=== PATIENT | female | born 1965 | race Caucasian/White ===

== ENCOUNTER 2017-03-11 09:02 | Outpatient (CLI) | payer MEDICAID ==
[2017-03-11 18:55] LABS: THYROID STIMULATING HORMONE 0.88 uIU/mL (0.34-5.60)
[2017-03-11 19:05] LABS: FOLLICLE STIMULATING HORMONE 17.99 mIU/mL
== END 2017-03-11 09:03 | disposition home or self-care (01) ==
LOC: LAB.F 09:02
PROVIDERS: ATTEND Nurse Practitioner Family
DX: N92.4 Excessive bleeding in the premenopausal period (principal); R53.83 Other fatigue
CPT/HCPCS: 36415; 83001; 84443

== ENCOUNTER 2017-03-13 13:20 | Outpatient (CLI) | payer MEDICAID ==
--- NOTE | 2017-03-14 16:44 | Mammography Report ---
DIGITAL SCREENING MAMMOGRAM: 03/13/2017 CLINICAL INDICATION: A 51-year-old, for screening. COMPARISON: 02/2016, 10/2013, 12/2010, 11/2009, 03/2008. TECHNIQUE: Routine CC and MLO projections were obtained of the breasts. Bilateral laterally exaggera micky craniocaudal views. FINDINGS: Parenchymal tissue within both breasts is heterogeneously dense, which may lower the sensi tivity of mammography; however, there are no dominant masses, suspicious microcalcifications, or seco ndary signs of malignancy. In comparison to the previous studies, there are no significant changes. ASSESSMENT: NO MAMMOGRAPHIC EVIDENCE OF MALIGNANCY. NO SIGNIFICANT INTERVAL CHANGES. RECOMMENDATION: Screening mammography is recommended annually. BIRADS category 1 - negative. STANDARD QUALIFYING STATEMENTS 1. This examination was reviewed with the aid of Computed-Aided Detection (CAD). 2. A negative or benign imaging report should not delay biopsy if clinically suspicious findings are present. Consider surgical consultation if warranted. More than 5% of cancers are not identified by i maging. 3. Dense breasts may obscure an underlying neoplasm. JOB #: [id number] EXT JOB #:[id number]
== END 2017-03-13 13:21 | disposition home or self-care (01) ==
LOC: DI.S 13:20
PROVIDERS: ATTEND Nurse Practitioner Family
DX: Z12.31 Encounter for screening mammogram for malignant neoplasm of breast (principal)
CPT/HCPCS: 77067

== ENCOUNTER 2018-02-25 07:32 | Outpatient (CLI) | payer MEDICAID ==
--- NOTE | 2018-02-25 11:36 | XRAY Report ---
Procedure Date: 02/25/2018 Accession Number: [id number] / [id number] Procedure: XR - Shoulder 2 View LT CPT Code: FULL RESULT: EXAM: LEFT SHOULDER RADIOGRAPHY EXAM DATE: 02/25/2018 07:56 AM. CLINICAL HISTORY: SHOULDER JOINT PX, LEFT. COMPARISON: None. TECHNIQUE: 2 views. FINDINGS: Bones: Normal. No fracture or bone lesion. Joints: Minimal degenerative changes in the glenohumeral joint. Minimal degenerative changes in the acromioclavicular joint. Soft tissues: The visualized hemithorax is unremarkable. No soft tissue swelling. IMPRESSION: Minimal degenerative changes in the glenohumeral and acromioclavicular joints. RADIA
== END 2018-02-25 07:33 | disposition home or self-care (01) ==
LOC: DI 07:32
PROVIDERS: ATTEND Nurse Practitioner Family
DX: M19.012 Primary osteoarthritis, left shoulder (principal)

== ENCOUNTER 2018-03-16 07:23 | Outpatient (CLI) | payer MEDICAID ==
[2018-03-16 11:41] LABS: BASOPHILS % (AUTO) 0.7 %; EOSINOPHILS # (AUTO) 0.3 10^3/uL (0.0-0.7); HGB - HEMOGLOBIN 13.8 g/dL (12.0-16.0); LYMPHOCYTES # (AUTO) 1.6 10^3/uL (1.5-3.5); LYMPHOCYTES % (AUTO) 24.2 %; MEAN CORPUSCULAR HEMOGLOBIN 30.6 pg (27.0-31.0); MEAN CORPUSCULAR HGB CONC 32.7 g/dL (32.0-36.0); MEAN CORPUSCULAR VOLUME 93.6 fL (81.0-99.0); MEAN PLATELET VOLUME 8.4 fL (7.9-10.8); MONOCYTES # (AUTO) 0.7 10^3/uL (0.0-1.0); MONOCYTES % (AUTO) 10.7 %; NEUTROPHILS # (AUTO) 3.9 10^3/uL (1.5-6.6); NEUTROPHILS % (AUTO) 59.4 %; PLT - PLATELET COUNT 289 10^3/uL (130-450); RED BLOOD COUNT 4.51 10^6/uL (4.20-5.40); RED CELL DISTRIBUTION WIDTH 13.3 % (12.0-15.0); WHITE BLOOD COUNT 6.6 x10^3/uL (4.8-10.8)
[2018-03-16 11:57] LABS: ALBUMIN/GLOBULIN RATIO 1.3 (1.0-2.2); ALKALINE PHOSPHATASE 51 IU/L (42-121); ALT ALANINE AMINOTRANSFERASE 16 IU/L (10-60); AST ASPARTATE AMINOTRANSFERASE 26 IU/L (10-42); BILIRUBIN,TOTAL 0.6 mg/dL (0.2-1.0); BUN - BLOOD UREA NITROGEN 21 mg/dL (6-20); CALCIUM 9.4 mg/dL (8.5-10.3); CARBON DIOXIDE - CO2 25 mmol/L (21-32); CHLORIDE 105 mmol/L (101-111); CHOL/HDL RATIO 3.3 (<4.4); CHOLESTEROL 192 mg/dL; CREATININE 0.7 mg/dL (0.4-1.0); GFR - MDRD 89 (>89); GLUCOSE 95 mg/dL (70-100); HDL CHOLESTEROL 59 mg/dL; LDL CHOLESTEROL,CALCULATED 119 mg/dL; SODIUM 137 mmol/L (135-145); TOTAL PROTEIN 7.2 g/dL (6.7-8.2); VLDL CHOLESTEROL 14 mg/dL
== END 2018-03-16 07:24 | disposition home or self-care (01) ==
LOC: LAB.F 07:23
PROVIDERS: ATTEND Nurse Practitioner Family
DX: Z13.1 Encounter for screening for diabetes mellitus (principal); Z13.220 Encounter for screening for lipoid disorders; N92.4 Excessive bleeding in the premenopausal period
CPT/HCPCS: 36415; 80050; 80061; 83721

== ENCOUNTER 2018-04-16 08:05 | Outpatient (CLI) | payer MEDICAID ==
--- NOTE | 2018-04-16 10:10 | Ultrasound Report ---
Procedure Date: 04/16/2018 Accession Number: [id number] / [id number] Procedure: US - Pelvic w/Transvaginal CPT Code: FULL RESULT: EXAM: Pelvic w/Transvaginal DATE: 04/16/2018 9:45 AM CLINICAL HISTORY: IRREGULAR MENSTRUATION,UNSPECIFIED COMPARISON: 03/13/2016. TECHNIQUE: Realtime transabdominal imaging performed to identify the uterus and adnexa and as an overview of other pelvic structures, followed by transvaginal imaging for better assessment of the endometrium and/or adnexa, with static image documentation. FINDINGS: Uterus: 9.5 x 5.1 x 5.3 cm, volume 134 cc. Anteverted position. Normal overall size and echotexture. Masses: None. Endometrium: 6 mm. Normal. Cervix: A few nabothian cysts are noted. Right Ovary/Adnexa: 3.9 x 2.1 x 1.6 cm, volume 7 cc. Normal echotexture. Blood flow is present. No adnexal mass is seen. Left Ovary/Adnexa: Visualization is limited to transabdominal images. 2.4 x 1.7 x 1.6 cm, volume 2.1 cc. Normal echotexture. Blood flow is present. No adnexal mass is seen. Free Fluid: None. Other: None. IMPRESSION: Normal pelvic ultrasound. RADIA
== END 2018-04-16 08:06 | disposition home or self-care (01) ==
LOC: DI 08:05
PROVIDERS: ATTEND Obstetrics & Gynecology
DX: N92.6 Irregular menstruation, unspecified (principal); N88.8 Other specified noninflammatory disorders of cervix uteri
CPT/HCPCS: 76830; 76856

== ENCOUNTER 2018-06-18 10:39 | Outpatient (CLI) | payer MEDICAID ==
[2018-06-18 19:04] LABS: FOLLICLE STIMULATING HORMONE 18.22 mIU/mL
[2018-06-18 19:05] LABS: LUTEINIZING HORMONE 10.63 mIU/mL
== END 2018-06-18 10:40 | disposition home or self-care (01) ==
LOC: LAB.F 10:39
PROVIDERS: ATTEND Obstetrics & Gynecology
DX: N93.8 Other specified abnormal uterine and vaginal bleeding (principal)
CPT/HCPCS: 36415; 82670; 83001; 83002

== ENCOUNTER 2019-06-18 07:21 | Outpatient (CLI) | payer OTHER ==
--- NOTE | 2019-06-18 15:24 | Mammography Report ---
Reason: SCREENING MAMMO Procedure Date: 06/18/2019 Accession Number: [id number] / [id number] Procedure: MGS - Screening Mammo Dig Bilat CPT Code: FULL RESULT: EXAM: Screening Mammo Dig Bilat DATE: 06/18/2019 7:37 AM CLINICAL HISTORY: Screening. TECHNIQUE: (B) - Bilateral CC and MLO views were obtained. COMPARISON: 03/13/2017, 03/13/2016, 11/11/2013 PARENCHYMAL PATTERN: (A) - The breasts demonstrate scattered fibroglandular densities bilaterally. FINDINGS: There are no suspicious masses, calcifications, or areas of distortion. IMPRESSION: Negative examination. BI-RADS category 1. RECOMMENDATION: (ANNUAL) - Recommend routine annual screening mammography. BI-RADS CATEGORY: (1) - Negative. STANDARD QUALIFYING STATEMENTS: 1. This examination was reviewed with the aid of Computer-Aided Detection (CAD). 2. A negative or benign imaging report should not preclude biopsy if clinically suspicious findings are present. 3. Dense breasts may obscure an underlying neoplasm. 4. This examination was reviewed without the aid of 3D breast imaging (tomosynthesis).
== END 2019-06-18 07:22 | disposition home or self-care (01) ==
LOC: DI.S 07:21
DX: Z12.31 Encounter for screening mammogram for malignant neoplasm of breast (principal); Z80.3 Family history of malignant neoplasm of breast
CPT/HCPCS: 77067

== ENCOUNTER 2020-03-07 07:37 | Outpatient (CLI) | payer OTHER ==
[2020-03-07 14:42] LABS: BASOPHILS # (AUTO) 0.1 10^3/uL (0.0-0.1); BASOPHILS % (AUTO) 0.8 %; EOSINOPHILS # (AUTO) 0.5 10^3/uL (0.0-0.7); EOSINOPHILS % (AUTO) 7.5 %; HGB - HEMOGLOBIN 13.2 g/dL (12.0-16.0); LYMPHOCYTES % (AUTO) 33.3 %; MEAN CORPUSCULAR HEMOGLOBIN 30.1 pg (27.0-31.0); MEAN CORPUSCULAR VOLUME 94.1 fL (81.0-99.0); MEAN PLATELET VOLUME 9.9 fL (7.9-10.8); MONOCYTES # (AUTO) 0.6 10^3/uL (0.0-1.0); MONOCYTES % (AUTO) 9.9 %; NEUTROPHILS # (AUTO) 2.9 10^3/uL (1.5-6.6); NEUTROPHILS % (AUTO) 48.2 %; PLT - PLATELET COUNT 274 10^3/uL (130-450); RED BLOOD COUNT 4.38 10^6/uL (4.20-5.40); RED CELL DISTRIBUTION WIDTH 12.9 % (12.0-15.0)
[2020-03-07 15:02] LABS: ALBUMIN 4.3 g/dL (3.2-5.5); ALBUMIN/GLOBULIN RATIO 1.6 (1.0-2.2); ALKALINE PHOSPHATASE 56 IU/L (42-121); ALT ALANINE AMINOTRANSFERASE 18 IU/L (10-60); AST ASPARTATE AMINOTRANSFERASE 24 IU/L (10-42); BILIRUBIN,TOTAL 0.6 mg/dL (0.2-1.0); BUN - BLOOD UREA NITROGEN 20 mg/dL (6-20); CALCIUM 9.2 mg/dL (8.5-10.3); CARBON DIOXIDE - CO2 26 mmol/L (21-32); CHLORIDE 106 mmol/L (101-111); CHOL/HDL RATIO 3.1 (<4.4); CHOLESTEROL 188 mg/dL; CREATININE 0.8 mg/dL (0.4-1.0); GLUCOSE 90 mg/dL (70-100); HDL CHOLESTEROL 61 mg/dL; LDL CHOLESTEROL,CALCULATED 117 mg/dL; LDL/HDL RATIO 1.9 (<4.4); SODIUM 138 mmol/L (135-145); VLDL CHOLESTEROL 10 mg/dL
[2020-03-07 15:06] LABS: HB2 TOTAL 13.8 g/dL; HEMOGLOBIN A1C 0.52 g/dL; HEMOGLOBIN A1C % 5.6 % (4.6-6.2)
[2020-03-07 15:39] LABS: FOLLICLE STIMULATING HORMONE 131.68 mIU/mL
== END 2020-03-07 07:38 | disposition home or self-care (01) ==
LOC: LAB.S 07:37
PROVIDERS: ATTEND Physician Assistant
DX: Z00.00 Encounter for general adult medical examination without abnormal findings (principal); R73.01 Impaired fasting glucose; Z83.3 Family history of diabetes mellitus; N95.1 Menopausal and female climacteric states
CPT/HCPCS: 36415; 80053; 80061; 83001; 83036; 83721; 84443; 85025

== ENCOUNTER 2020-10-16 08:38 | Outpatient (CLI) | payer OTHER ==
--- NOTE | 2020-10-17 08:27 | Mammography Report ---
BILATERAL DIGITAL SCREENING MAMMOGRAM 3D/2D WITH EXAGGERATED CC: 10/16/2020 CLINICAL: Routine screening. Comparison is made to exams dated: 06/18/2019 mammogram, 03/13/2017 mammogram, and 03/13/2016 mammogram - [facility]. The tissue of both breasts is heterogeneously dense. This may lower the sensitivity of mammography. No significant masses, calcifications, or other findings are seen in either breast. There has been no significant interval change. IMPRESSION: NEGATIVE There is no mammographic evidence of malignancy. A 1 year screening mammogram is recommended. This exam was interpreted at Station ID: [id number]. NOTE: For mammograms, a report in lay terms will be sent to the patient. Approximately 15% of breast malignancies will not be visualized mammographically. In the management of a palpable breast mass, a negative mammogram must not discourage biopsy of a clinically suspicious lesion. Electronically Signed By: Jez Montoya M.D. ar/penrad:10/16/2020 10:39:08 ACR BI-RADS Category 1: Negative 3341F PARENCHYMAL PATTERN: (D) - The breast(s) demonstrate(s) heterogeneously dense fibroglandular kareen crane. BI-RADS CATEGORY: (1) - 1 RECOMMENDATION: (ANNUAL) - Recommend routine annual screening mammography. [id number] 1 year screening LATERALITY: (B)
== END 2020-10-16 08:39 | disposition home or self-care (01) ==
LOC: DI.S 08:38
PROVIDERS: ATTEND Nurse Practitioner Obstetrics & Gynecology
DX: Z12.31 Encounter for screening mammogram for malignant neoplasm of breast (principal)

== ENCOUNTER 2021-06-07 07:26 | Outpatient (CLI) | payer OTHER ==
[2021-06-07 14:34] LABS: BASOPHILS # (AUTO) 0.1 10^3/uL (0.0-0.1); BASOPHILS % (AUTO) 1.2 %; EOSINOPHILS # (AUTO) 0.4 10^3/uL (0.0-0.7); EOSINOPHILS % (AUTO) 7.4 %; HCT - HEMATOCRIT 41.8 % (37.0-47.0); LYMPHOCYTES # (AUTO) 2.2 10^3/uL (1.5-3.5); LYMPHOCYTES % (AUTO) 36.5 %; MEAN CORPUSCULAR HEMOGLOBIN 30.5 pg (27.0-31.0); MEAN CORPUSCULAR HGB CONC 31.1 g/dL (32.0-36.0); MEAN CORPUSCULAR VOLUME 98.1 fL (81.0-99.0); MONOCYTES # (AUTO) 0.7 10^3/uL (0.0-1.0); MONOCYTES % (AUTO) 11.8 %; NEUTROPHILS # (AUTO) 2.6 10^3/uL (1.5-6.6); NEUTROPHILS % (AUTO) 42.8 %; PLT - PLATELET COUNT 310 10^3/uL (130-450); RED BLOOD COUNT 4.26 10^6/uL (4.20-5.40); RED CELL DISTRIBUTION WIDTH 13.2 % (12.0-15.0)
[2021-06-07 15:15] LABS: THYROID STIMULATING HORMONE 1.05 uIU/mL (0.34-5.60)
[2021-06-07 15:18] LABS: ALBUMIN 4.2 g/dL (3.2-5.5); ALBUMIN/GLOBULIN RATIO 1.5 (1.0-2.2); ALKALINE PHOSPHATASE 48 IU/L (42-121); ALT ALANINE AMINOTRANSFERASE 19 IU/L (10-60); AST ASPARTATE AMINOTRANSFERASE 24 IU/L (10-42); BILIRUBIN,TOTAL 0.8 mg/dL (0.2-1.0); BUN - BLOOD UREA NITROGEN 19 mg/dL (6-20); CALCIUM 9.4 mg/dL (8.5-10.3); CARBON DIOXIDE - CO2 27 mmol/L (21-32); CHLORIDE 103 mmol/L (101-111); CHOL/HDL RATIO 3.8 (<4.4); CHOLESTEROL 218 mg/dL; CREATININE 0.7 mg/dL (0.4-1.0); GFR - MDRD 88 (>89); GLUCOSE 93 mg/dL (70-100); HDL CHOLESTEROL 58 mg/dL; LDL CHOLESTEROL,CALCULATED 144 mg/dL; LDL/HDL RATIO 2.5 (<4.4); POTASSIUM 4.1 mmol/L (3.5-5.0); SODIUM 137 mmol/L (135-145); TRIGLYCERIDES 80 mg/dL; VLDL CHOLESTEROL 16 mg/dL
== END 2021-06-07 07:27 | disposition home or self-care (01) ==
LOC: LAB.S 07:26
PROVIDERS: ATTEND Internal Medicine
DX: Z00.00 Encounter for general adult medical examination without abnormal findings (principal); R53.83 Other fatigue; F41.9 Anxiety disorder, unspecified; F32.9 Major depressive disorder, single episode, unspecified
CPT/HCPCS: 36415; 80053; 80061; 83721; 84443; 85025

== ENCOUNTER 2021-07-30 07:01 | Day surgery (SDC) | payer OTHER ==
[2021-07-30] MEDS ORDERED: LACTATED RINGERS 1,000 ML IV ONE (07:21)
--- NOTE | 2021-07-30 07:36 | ANESTHESIA ---
Pre-Anesthesia VS, & Labs - Diagnosis screening colonoscopy - Procedure colonoscopy Vital Signs: Temp Pulse Resp BP Pulse Ox 36.4 C L 66 16 120/80 98 07/30/21 07:25 07/30/21 07:25 07/30/21 07:25 07/30/21 07:25 07/30/21 07:25 Height: 5 ft 3 in Weight (kg): 74.2 kg Body Mass Index: 29.0 BMI Classification: Overweight - NPO >8 hours - Is Patient ?: No Home Medications and Allergies Cholecalciferol (Vitamin D3) [Vitamin D3] 5,000 unit PO DAILY 08/23/14 Loratadine 10 mg PO DAILY 08/23/14 Multivitamin [Multivitamins] 1 each PO DAILY 08/23/14 Naproxen Sodium 220 mg PO DAILY 08/23/14 Triamcinolone Acetonide [Nasacort] 1 spray NS DAILY 08/23/14 Allergies/Adverse Reactions: Allergies Allergy/AdvReac Type Severity Reaction Status Date / Time No Known Drug Allergies Allergy Verified 08/23/14 08:57 Anes History & Medical History - Anesthetic History Anesthesia Complications: reports: No previous complications - Medical History Cardiovascular: reports: None Pulmonary: reports: None Gastrointestinal: reports: None Urinary: reports: Chronic bladder infection Musculoskeletal: reports: Osteoarthritis, Chronic back pain Endocrine/Autoimmune: reports: None Skin: reports: None History of Cancer?: No - Surgical History General: reports: Colonoscopy Gynecologic: reports: Tubal ligation Orthopedic: reports: Arthroscopic surgery Exam General: Alert, Oriented x3 Dental: WNL Mouth Opening: Greater than 4 Fingerbreadths Neck Mobility: Normal Mallampati classification: I Thyromental Distance: greater than 6 cm Respiratory: Lungs clear Cardiovascular: Regular rate, Normal S1, Normal S2 Plan Anesthesia Type: Total IV Consent for Procedure(s) Verified and Reviewed: Yes Code Status: Attempt Resuscitation ASA classification: 1-Healthy patient Is this case an emergency?: No
[2021-07-30] MEDS ORDERED: PROPOFOL 500 MG/50 ML 500 MG/50 ML VIAL ONE (07:59)
[2021-07-30] MEDS ORDERED: LIDOCAINE-MPF 2% 5 ML VIAL ONE (08:00)
[2021-07-30] MEDS ORDERED: LACTATED RINGERS 400 ML IV ONE (08:34)
[2021-07-30 09:01] VITALS: BP 104/76
--- NOTE | 2021-07-30 10:25 | ANESTHESIA POST OP EVALUATION ---
Anesthesia Post Eval - Post Anesthesia Eval Vitals: Last Vital Signs Temp 36.6 C 07/30/21 08:59 Pulse 63 07/30/21 08:59 Resp 16 07/30/21 08:59 BP 104/76 07/30/21 08:59 Pulse Ox 100 07/30/21 08:59 CV Function Including HR & BP: Stable Pain Control: Satisfactory Nausea & Vomiting: Negative Mental Status: Baseline Respiratory Status: Airway Patent Hydration Status: Satisfactory Anesthesia Complications: None
== END 2021-07-30 07:02 | disposition home or self-care (01) ==
LOC: SDS 07:01
PROVIDERS: ATTEND Surgery
DX: Z12.11 Encounter for screening for malignant neoplasm of colon (principal); K57.30 Diverticulosis of large intestine without perforation or abscess without bleeding; K64.8 Other hemorrhoids; F41.8 Other specified anxiety disorders
CPT/HCPCS: 45378; J7120

== ENCOUNTER 2021-10-17 06:19 | Day surgery (SDC) | payer OTHER ==
[2021-10-17] MEDS ORDERED: LACTATED RINGERS 1,000 ML IV ONE ×2 (06:23→08:05)
--- NOTE | 2021-10-17 07:21 | ANESTHESIA ---
Pre-Anesthesia VS, & Labs - Diagnosis GERD - Procedure EGD Vital Signs: Temp Pulse Resp BP Pulse Ox 36.2 C L 63 16 103/79 98 10/17/21 06:35 10/17/21 06:35 10/17/21 06:35 10/17/21 06:35 10/17/21 06:35 Height: 5 ft 3 in Weight (kg): 75 kg Body Mass Index: 29.2 BMI Classification: Overweight - NPO >8 hours - Is Patient ?: No Home Medications and Allergies Cholecalciferol (Vitamin D3) [Vitamin D3] 5,000 unit PO DAILY 08/23/14 Loratadine 10 mg PO DAILY 08/23/14 Multivitamin [Multivitamins] 1 each PO DAILY 08/23/14 Naproxen Sodium 220 mg PO DAILY 08/23/14 Triamcinolone Acetonide [Nasacort] 1 spray NS DAILY 08/23/14 Allergies/Adverse Reactions: Allergies Allergy/AdvReac Type Severity Reaction Status Date / Time No Known Drug Allergies Allergy Verified 08/23/14 08:57 Anes History & Medical History - Anesthetic History Anesthesia Complications: reports: No previous complications - Medical History Cardiovascular: reports: None Pulmonary: reports: None Gastrointestinal: reports: GERD Urinary: reports: Chronic bladder infection Musculoskeletal: reports: Osteoarthritis, Chronic back pain Endocrine/Autoimmune: reports: None Skin: reports: None History of Cancer?: No - Surgical History General: reports: Colonoscopy, EGD Gynecologic: reports: Tubal ligation Orthopedic: reports: Arthroscopic surgery Exam General: Alert Dental: WNL Mouth Opening: Greater than 4 Fingerbreadths Mallampati classification: I Respiratory: Lungs clear Cardiovascular: Regular rate, Normal S1, Normal S2 Plan Anesthesia Type: General Consent for Procedure(s) Verified and Reviewed: Yes Code Status: Attempt Resuscitation ASA classification: 1-Healthy patient Is this case an emergency?: No
[2021-10-17] MEDS ORDERED: LIDOCAINE-MPF 2% 5 ML VIAL ONE (07:59)
[2021-10-17] MEDS ORDERED: PROPOFOL 200 MG/20 ML VIAL IVP ONE (07:59)
[2021-10-17 08:32] VITALS: BP 102/76
--- NOTE | 2021-10-17 08:32 | ANESTHESIA POST OP EVALUATION ---
Anesthesia Post Eval - Post Anesthesia Eval Vitals: Last Vital Signs Temp 36.5 C 10/17/21 08:31 Pulse 62 10/17/21 08:31 Resp 16 10/17/21 08:31 BP 102/76 10/17/21 08:31 Pulse Ox 99 10/17/21 08:31 CV Function Including HR & BP: Stable Pain Control: Satisfactory Nausea & Vomiting: Negative Mental Status: Baseline Respiratory Status: Airway Patent Hydration Status: Satisfactory Anesthesia Complications: None
== END 2021-10-17 06:20 | disposition home or self-care (01) ==
LOC: SDS 06:19
PROVIDERS: ATTEND Surgery
DX: K21.9 Gastro-esophageal reflux disease without esophagitis (principal); K44.9 Diaphragmatic hernia without obstruction or gangrene; Z80.0 Family history of malignant neoplasm of digestive organs
CPT/HCPCS: 43235; J7120

== ENCOUNTER 2021-10-30 07:33 | Outpatient (CLI) | payer OTHER ==
--- NOTE | 2021-10-31 08:01 | Mammography Report ---
BILATERAL DIGITAL SCREENING MAMMOGRAM 3D/2D WITH EXAGGERATED CC: 10/30/2021 CLINICAL: Routine screening. Family history of breast cancer. Comparison is made to exams dated: 10/16/2020 mammogram, 06/18/2019 mammogram, and 03/13/2017 mammogram - [facility]. The tissue of both breasts is heterogeneously dense. This may lower the sensitivity of mammography. No significant masses, calcifications, or other findings are seen in either breast. There has been no significant interval change. IMPRESSION: NEGATIVE There is no mammographic evidence of malignancy. A 1 year screening mammogram is recommended. This exam was interpreted at Station ID: [id number]. NOTE: For mammograms, a report in lay terms will be sent to the patient. Approximately 15% of breast malignancies will not be visualized mammographically. In the management of a palpable breast mass, a negative mammogram must not discourage biopsy of a clinically suspicious lesion. Electronically Signed By: Rita [email or web address]/penrad:10/30/2021 10:57:20 ACR BI-RADS Category 1: Negative 3341F PARENCHYMAL PATTERN: (D) - The breast(s) demonstrate(s) heterogeneously dense fibroglandular kareen crane. BI-RADS CATEGORY: (1) - 1 RECOMMENDATION: (ANNUAL) - Recommend routine annual screening mammography. [id number] 1 year screening LATERALITY: (B)
== END 2021-10-30 07:34 | disposition home or self-care (01) ==
LOC: DI.S 07:33
PROVIDERS: ATTEND Nurse Practitioner Family
DX: Z12.31 Encounter for screening mammogram for malignant neoplasm of breast (principal); Z80.3 Family history of malignant neoplasm of breast

== ENCOUNTER 2021-11-18 12:45 | Outpatient (CLI) | payer OTHER | END 2021-11-18 23:59 | disposition home or self-care (01) | LOC: LAB 12:45 | PROVIDERS: ATTEND Physician Assistant | DX: R07.0 Pain in throat (principal) | CPT/HCPCS: 87070 ==

== ENCOUNTER 2023-02-11 08:47 | Outpatient (CLI) | payer OTHER ==
--- NOTE | 2023-02-12 10:02 | Mammography Report ---
BILATERAL DIGITAL SCREENING MAMMOGRAM 3D/2D WITH EXAGGERATED CC: 02/11/2023 CLINICAL: Routine screening. Family history of breast cancer. Comparison is made to exams dated: 10/16/2020 mammogram, 06/18/2019 mammogram, and 03/13/2017 mammogram - [facility]. Both breasts are heterogeneously dense, which may obscure small masses (category c / 51-75% glandular tissue). No significant masses, calcifications, or other findings are seen in either breast. There has been no significant interval change. IMPRESSION: NEGATIVE There is no mammographic evidence of malignancy. A 1 year screening mammogram is recommended. Based on the Tyrer Cuzick model (a risk assessment model) the patients lifetime risk is 14.4% and he r 10 year risk is 4.6%. According to the ACR, ACS, and NCCN guidelines, an annual breast MRI exam elizabet ng with mammogram is recommended if the patients lifetime risk is 20% or greater. This exam was interpreted at Station ID: [id number]. NOTE: For mammograms, a report in lay terms will be sent to the patient. Approximately 15% of breast malignancies will not be visualized mammographically. In the management of a palpable breast mass, a negative mammogram must not discourage biopsy of a clinically suspicious lesion. Electronically Signed By: Jagdish [email or web address]/[email or web address]:02/11/2023 09:34:12 letter sent: No_Letter ACR BI-RADS Category 1: Negative 3341F PARENCHYMAL PATTERN: (D) - The breast(s) demonstrate(s) heterogeneously dense fibroglandular kareen crane. BI-RADS CATEGORY: (1) - 1 Mammogram [id number] 1 year screening LATERALITY: (B)
== END 2023-02-11 08:48 | disposition home or self-care (01) ==
LOC: DI.S 08:47
PROVIDERS: ATTEND Nurse Practitioner Family
DX: Z12.31 Encounter for screening mammogram for malignant neoplasm of breast (principal); Z80.3 Family history of malignant neoplasm of breast

== ENCOUNTER 2023-02-14 10:14 | Outpatient (CLI) | payer OTHER ==
--- NOTE | 2023-02-14 13:47 | XRAY Report ---
PROCEDURE: Ankle 3 View LT INDICATIONS: LEFT ANKLE SPRAIN TECHNIQUE: 3 views of the ankle were acquired. COMPARISON: X-ray foot 02/14/2023, 03/01/2022 FINDINGS: Bones: There is a small curvilinear calcification at the distal posterior most aspect of the tibia o nly seen on lateral view. This is not well appreciated on prior exam.. Ankle mortise is normally ali gned. No suspicious bony lesions. Partially visualized surgical screws are noted overlying the fir st metatarsal. Soft tissues: No tibiotalar joint effusion. Achilles tendon appears normal. IMPRESSION: Small curvilinear calcification the cortex of the distal posterior tibia as above. It is new since 04 11. Recommend correlation point tenderness as small avulsion injury cannot be excluded. Reviewed by: Jasmin Hill MD on 02/14/2023 1:45 PM PDT Approved by: Jasmin Hill MD on 02/14/2023 1:45 PM PDT Station ID: [id number]
--- NOTE | 2023-02-14 17:08 | XRAY Report ---
PROCEDURE: Foot 3 View LT INDICATIONS: LEFT FOOT PAIN TECHNIQUE: 3 views of the foot were acquired. COMPARISON: 03/01/2022 FINDINGS: Bones: Healing instrumented first and fifth metatarsal osteotomies present. No evidence of hardware failure or loosening. Normal bone mineralization. No fracture. Soft tissues: No suspicious soft tissue calcifications or masses. IMPRESSION: Healing instrumented first and fifth osteotomies. No fracture or hardware failure Reviewed by: Robert Bucio MD on 02/14/2023 4:07 PM DIANA Approved by: Robert Bucio MD on 02/14/2023 4:07 PM DIANA Station ID: [id number]
== END 2023-02-14 23:59 | disposition home or self-care (01) ==
LOC: DI.S 10:14
PROVIDERS: ATTEND Physician Assistant Medical
DX: S93.492A Sprain of other ligament of left ankle, initial encounter (principal); S93.692A Other sprain of left foot, initial encounter

== ENCOUNTER 2024-02-11 07:38 | Outpatient (CLI) | payer OTHER ==
--- NOTE | 2024-02-12 11:47 | Mammography Report ---
BILATERAL DIGITAL SCREENING MAMMOGRAM 3D/2D WITH EXAGGERATED CC: 02/11/2024 CLINICAL: Routine screening. Comparison is made to exams dated: 02/11/2023 mammogram, 10/30/2021 mammogram, and 10/16/2020 mammogram - [facility]. Both breasts are heterogeneously dense, which may obscure small masses (category c / 51-75% glandular tissue). No significant masses, calcifications, or other findings are seen in either breast. There has been no significant interval change. IMPRESSION: NEGATIVE There is no mammographic evidence of malignancy. A 1 year screening mammogram is recommended. Based on the Tyrer Cuzick model (a risk assessment model) the patient's lifetime risk is 14.1% and he r 10 year risk is 4.7%. According to the ACR, ACS, and NCCN guidelines, an annual breast MRI exam elizabet ng with mammogram is recommended if the patient's lifetime risk is 20% or greater. This exam was interpreted at Station ID: [id number]. NOTE: For mammograms, a report in lay terms will be sent to the patient. Approximately 15% of breast malignancies will not be visualized mammographically. In the management of a palpable breast mass, a negative mammogram must not discourage biopsy of a clinically suspicious lesion. Electronically Signed By: Quita [email or web address]:02/11/2024 09:45:06 letter sent: No_Letter ACR BI-RADS Category 1: Negative 3341F PARENCHYMAL PATTERN: (D) - The breast(s) demonstrate(s) heterogeneously dense fibroglandular kareen crane. BI-RADS CATEGORY: (1) - 1 RECOMMENDATION: (ANNUAL) - Recommend routine annual screening mammography. [id number] 1 year screening LATERALITY: (B)
== END 2024-02-11 07:39 | disposition home or self-care (01) ==
LOC: DI.S 07:38
PROVIDERS: ATTEND Nurse Practitioner
DX: Z12.31 Encounter for screening mammogram for malignant neoplasm of breast (principal); R92.333 Mammographic heterogeneous density, bilateral breasts